=== PATIENT | female | born 1950 | race Caucasian/White ===

== ENCOUNTER 2021-02-13 10:05 | Observation (INO) | payer MEDICARE ==
[~2021-02-13] VITALS: Ht 147.3 cm; Wt 97.0 kg
[2021-02-13 11:35] LABS: IMMATURE GRANULOCYTES 0.2 % (0.0-5.0); MEAN CELL VOLUME 81.9 fL CALC (80.0-100.0); MEAN CORPUSCULAR HGB 23.2 pG CALC (26.0-32.0); MEAN CORPUSCULAR HGB CONC 28.3 g/dL CAL (32.0-36.0); NEUT# 2.93 thou/uL (2.00-7.15); RED BLOOD COUNT 2.93 mill/uL (4.20-5.60); RED CELL DISTRI WIDTH 16.9 % (11.5-15.5)
[2021-02-13 11:37] LABS: HEMOGLOBIN 6.8 g/dl (12.0-16.0)
[2021-02-13 12:00] LABS: BILIRUBIN, TOTAL 0.3 mg/dL (0.0-1.4); CREATININE 1.2 mg/dL (0.5-1.0); POTASSIUM 3.9 mmol/l (3.5-5.1); TOTAL PROTEIN 7.7 g/dL (6.3-8.2)
[2021-02-13 12:50] VITALS: BP 162/71
[2021-02-13] MEDS ORDERED: SERTRALINE50 MG PO (13:14)
[2021-02-13] MEDS ORDERED: BUSPIRONE5 MG PO (13:14)
[2021-02-13] MEDS ORDERED: ALBUTEROL SUL0.083 % IN (13:15)
[2021-02-13] MEDS ORDERED: LEVOTHYROXIN50 MCG PO (13:16)
[2021-02-13] MEDS ORDERED: SPIRIVA HANDIH18 MCG INHW/SPAC (13:16)
[2021-02-13] MEDS ORDERED: BENAZEPRIL40 M1 PO (13:17)
[2021-02-13] MEDS ORDERED: NORVASC5 M1 PO (13:17)
[2021-02-13] MEDS ORDERED: OMEPRAZOLE DR20 MG PO (13:18)
[2021-02-13] MEDS ORDERED: MONTELUKAST SOD10 MG PO (13:18)
[2021-02-13] MEDS ORDERED: HYDROCHLOROT25 MG PO (13:19)
[2021-02-13] MEDS ORDERED: LORAZEPAM0.5 MG PO (13:20)
[2021-02-13 13:24] VITALS: BP 152/67
[2021-02-13 14:09] VITALS: BP 148/65
[2021-02-13 15:13] VITALS: BP 131/79
[2021-02-13 18:37] VITALS: BP 139/67
[2021-02-13 23:42] VITALS: BP 147/59
[2021-02-14] VITALS (8 sets, daily range): BP systolic 111–138; BP diastolic 54–68
[2021-02-14 05:53] LABS: HEMATOCRIT 25.3 % (37.0-47.0); HEMOGLOBIN 7.6 g/dl (12.0-16.0); IMMATURE GRANULOCYTES 0.4 % (0.0-5.0); MEAN CELL VOLUME 79.1 fL CALC (80.0-100.0); MEAN CORPUSCULAR HGB 23.8 pG CALC (26.0-32.0); NEUT# 2.72 thou/uL (2.00-7.15); RED BLOOD COUNT 3.2 mill/uL (4.20-5.60); RED CELL DISTRI WIDTH 16.3 % (11.5-15.5)
[2021-02-14] MEDS ORDERED: FE TABS325 MG PO (10:39)
== END 2021-02-14 12:50 | disposition home or self-care (01) ==
LOC: ED 10:05 → ED-I 12:20 → ED 12:32 → MS2 12:33
PROVIDERS: Emergency Medicine; ADMIT Internal Medicine; ATTEND Internal Medicine
PROC: 30233N1 Transfusion of Nonautologous Red Blood Cells into Peripheral Vein, Percutaneous Approach (ICD-10-PCS; principal; 2021-02-13)
PROC: 30233N1 Transfusion of Nonautologous Red Blood Cells into Peripheral Vein, Percutaneous Approach (ICD-10-PCS; 2021-02-14)
DX: D64.9 Anemia, unspecified (principal); I10 Essential (primary) hypertension; F32.A Depression, unspecified; F41.9 Anxiety disorder, unspecified; K21.9 Gastro-esophageal reflux disease without esophagitis; J45.909 Unspecified asthma, uncomplicated; E03.9 Hypothyroidism, unspecified; Z20.822 Contact with and (suspected) exposure to COVID-19
CPT/HCPCS: P9016; S0164